=== PATIENT | female | born 1995 | race Hispanic/Latino ===

== ENCOUNTER 2022-07-30 03:14 | Emergency (ER) | payer MEDICAID, OTHER ==
[~2022-07-30] VITALS: Ht 154.9 cm; Wt 61.7 kg
[2022-07-30] MEDS ORDERED: ACETAMINOPHEN 325 MG TAB PO ONE (03:30)
[2022-07-30] MEDS ORDERED: 0.9%NACL 1000ML 1,000 ML IV ONE (03:30)
[2022-07-30 03:33] LABS: BASOPHILS % (AUTO) 0.2 % (0.0-5.0); EOSINOPHILS % (AUTO) 0.1 % (0.0-8.0); HEMATOCRIT 40.2 % (36-48); LYMPHOCYTES % (AUTO) 13.3 % (21.0-51.0); MEAN CORPUSCULAR HEMOGLOBIN 30.7 pg (27.0-33.0); MEAN CORPUSCULAR HGB CONC 33.1 g/dL (32.0-36.0); MEAN CORPUSCULAR VOLUME 92.8 fL (79-99); MONOCYTES % (AUTO) 10.4 % (3.0-13.0); NEUTROPHILS % (AUTO) 75.8 % (40.0-77.0); PLATELET COUNT (AUTO) 245 K/uL (130-400); RED BLOOD CELL COUNT(AUTO) 4.33 MIL/uL (4.00-5.50); RED CELL DISTRIBUTION WIDTH 13.3 % (11.0-15.5); WHITE BLOOD COUNT (AUTO) 8.9 K/uL (4.8-10.8)
[2022-07-30 03:41] LABS: CREATININE 0.8 mg/dL (0.5-1.5); POTASSIUM 3.2 mmol/L (3.5-5.1)
[2022-07-30 03:47] LABS: PROTHROMBIN TIME 10.9 SEC (9.6-11.6)
[2022-07-30 03:52] LABS: TOTAL PROTEIN, SERUM 7.3 g/dL (6.0-8.3)
[2022-07-30] MEDS ORDERED: POTASSIUM BICARB/CIT AC 25 MEQ TABLET.EFF PO ONE (04:00)
[2022-07-30 04:20] LABS: APPEARANCE,URINE CLEAR (CLEAR); BILIRUBIN,URINE NEGATIVE (NEGATIVE); COLOR,URINE COLORLESS (YELLOW); GLUCOSE, URINE (UA) NEGATIVE (NEGATIVE); KETONES,URINE NEGATIVE (NEGATIVE); LEUKOCYTE ESTERASE ,URINE NEGATIVE Leu/uL (NEGATIVE); NITRATE,URINE NEGATIVE (NEGATIVE); OCCULT BLOOD,URINE LARGE (NEGATIVE); PROTEIN,URINE NEGATIVE (NEGATIVE); UROBILINOGEN,URINE 0.2 mg/dL (0.2-1.0)
[2022-07-30 04:30] LABS: BACTERIA,URINE RARE /HPF (None Seen); RBC,URINE 0-1 /HPF (0-1); SQUAMOUS EPITHELIAL CELL,UR MOD /HPF (0-2); WBC,URINE 0-1 /HPF (0-1)
[2022-07-30 04:33] VITALS: BP 122/81
== END 2022-07-30 04:44 | disposition home or self-care (01) ==
LOC: EDH 03:14
DX: O99.891 Other specified diseases and conditions complicating pregnancy (principal); N92.6 Irregular menstruation, unspecified; E86.0 Dehydration; E87.6 Hypokalemia
CPT/HCPCS: 99284; 96360; 76856; 80053; 84702; 85025; 85610; 85730; 81001; 36415; J7030

== ENCOUNTER 2024-01-31 07:04 | Emergency (ER) | payer SELFPAY ==
[~2024-01-31] VITALS: Ht 154.9 cm; Wt 63.5 kg
[2024-01-31 08:13] LABS: BASOPHILS # (AUTO) 0.01 K/uL (0.00-0.20); BASOPHILS % (AUTO) 0.1 % (0.0-5.0); EOSINOPHILS # (AUTO) 0.03 K/uL (0.00-0.70); EOSINOPHILS % (AUTO) 0.2 % (0.0-8.0); HEMATOCRIT 38.7 % (36-48); IMMATURE GRANULOCYTE ABSOLUTE 0.04 K/uL (0-1); LYMPHOCYTES % (AUTO) 15.1 % (21.0-51.0); MEAN CORPUSCULAR HEMOGLOBIN 30.8 pg (27.0-33.0); MEAN CORPUSCULAR HGB CONC 33.6 g/dL (32.0-36.0); MEAN CORPUSCULAR VOLUME 91.7 fL (79-99); MONOCYTES # (AUTO) 0.6 K/uL (0.1-1.0); MONOCYTES % (AUTO) 4.9 % (3.0-13.0); NEUTROPHILS # (AUTO) 10.3 K/uL (1.8-7.7); NEUTROPHILS % (AUTO) 79.4 % (40.0-77.0); PLATELET COUNT (AUTO) 299 K/uL (130-400); RED BLOOD CELL COUNT(AUTO) 4.22 MIL/uL (4.00-5.50); RED CELL DISTRIBUTION WIDTH 13.1 % (11.0-15.5)
[2024-01-31] MEDS: PANTOPrazole 40 MG/VIAL IVP ONE (08:19)
[2024-01-31] MEDS: LACTATED RINGERS 1000ML 1,000 ML IV ONE (08:19)
[2024-01-31] MEDS: ondanSETRON 4MG INJ IVP ONE (08:19)
[2024-01-31 08:38] LABS: ALBUMIN 3.9 g/dL (3.5-5.0); BILIRUBIN,TOTAL 0.2 mg/dL (0.2-1.0); CREATININE 0.7 mg/dL (0.5-1.0); POTASSIUM 3.8 mmol/L (3.5-5.1); TOTAL PROTEIN, SERUM 7.2 g/dL (6.0-8.3)
[2024-01-31] MEDS: LIDOCAINE HCL 2% VISCOUS 15 ML UDCUP PO ONE (08:47)
[2024-01-31] MEDS: MAG/ALUM/SIMETH 30 ML UDCUP PO ONE (08:47)
[2024-01-31 08:51] LABS: APPEARANCE,URINE TURBID (CLEAR); BILIRUBIN,URINE NEGATIVE (NEGATIVE); COLOR,URINE YELLOW (YELLOW); GLUCOSE, URINE (UA) NEGATIVE (NEGATIVE); KETONES,URINE NEGATIVE (NEGATIVE); LEUKOCYTE ESTERASE ,URINE 500 Leu/uL (NEGATIVE); NITRATE,URINE NEGATIVE (NEGATIVE); PH,URINE 6.5 (5.0-8.0); PROTEIN,URINE 20 mg/dL (NEGATIVE); UROBILINOGEN,URINE 0.2 mg/dL (0.2-1.0)
[2024-01-31 08:54] LABS: ADD UA MICROSCOPIC YES; BACTERIA,URINE FEW /HPF (None Seen); MUCUS,URINE RARE LPF (None Seen); OTHER CASTS, URINE 3 /LPF (None Seen); SQUAMOUS EPITHELIAL CELL,UR MANY /HPF (0-2); WBC,URINE 26-50 /HPF (0-1)
[2024-01-31] MEDS: ketOROlac 15MG/ML VIAL (15MG/ML) IV ONE (09:10)
[2024-01-31] MEDS ORDERED: CEPH500B PO (09:49)
[2024-01-31] MEDS ORDERED: PHEN-846 PO (09:49)
[2024-01-31] MEDS: PHENAZOpyridine HCL 200 MG TAB 200 MG TABLET PO ONE (09:59)
[2024-01-31 10:01] VITALS: BP 138/76; PULSE 73; RESP 18; TEMP 97.9; O2SAT 99
== END 2024-01-31 10:07 | disposition home or self-care (01) ==
LOC: EDH 07:04
DX: N39.0 Urinary tract infection, site not specified (principal); K21.9 Gastro-esophageal reflux disease without esophagitis; R10.2 Pelvic and perineal pain
CPT/HCPCS: 99284; 96374; 96375; 82550; 84484; 80053; 84702; 83690; 85025; 87086; 81001; 36415; 93005; J2405; J2470; J1885